=== PATIENT | male | born 1990 | race Caucasian/White ===

== ENCOUNTER 2021-10-03 10:13 | Emergency (ER) | payer OTHER, SELFPAY ==
--- NOTE | ~2021-10-03 | XR_ITS ---
XR ankle LT min 3V 10/03/2021 10:39 INDICATION: Left ankle pain after trauma PROCEDURE: 4 views left ankle COMPARISON: No prior studies for comparison. FINDINGS: Fracture, dislocation or subluxation is not identified. Ankle mortise intact. Talar dome wi thin normal limits. The soft tissues appear within normal limits. No foreign bodies are identified. IMPRESSION: 1: NO ACUTE BONE OR JOINT ABNORMALITY IDENTIFIED. Reviewed, dictated and finalized at location [facility]
--- NOTE | 2021-10-03 10:28 | ED.LOWEXIN ---
HPI - Extremity Injury (Lower) General Chief Complaint: Extremity Injury, Lower Stated Complaint: Lt ankle pain Time Seen by Provider: 10/03/21 10:28 Source: patient and RN notes reviewed History of Present Illness HPI Narrative: Patient is a 31-year-old male who presents the urgent care with complaints of left ankle pain and swelling. Patient also reports to bruising and an abrasion to the left lower arm. Patient states that he was playing basketball this morning and rolled the left ankle falling against the bleachers. Patient states that he is elevated the ankle and placed ice but states he is having increased pain with weightbearing and ambulation. Patient denies hitting his head or any other injuries from the fall. Patient states that he saw the medical office at [place] and they recommended that he get an x-ray. No other acute complaints. No acute distress noted. Patient aware of the plan of care. Some parts of this dictation were generated by voice recognition software and may contain typographical and/or grammatical inaccuracies. Related Data Home Medications Medication Instructions Recorded Confirmed No Home Medications 10/03/21 10/03/21 Allergies Allergy/AdvReac Type Severity Reaction Status Date / Time No Known Allergies Allergy Verified 10/03/21 10:28 Review of Systems Review of Systems: CONSTITUTIONAL: Denies fever, chills, or sweats. EYES: Denies visual changes, redness, or discharge. ENT: Denies rhinorrhea, congestion, sore throat, or otalgia. CARDIOVASCULAR: Denies chest pain, palpitations, or edema. RESPIRATORY: Denies cough or dyspnea. GASTROINTESTINAL: Denies abdominal pain, nausea, vomiting, or diarrhea. GENITOURINARY: Denies dysuria or hematuria. SKIN: Denies rash or itching. Reports of bruising to the left lower arm MUSCULOSKELETAL: Reports of left ankle pain and swelling NEUROLOGIC: Denies headache, numbness, or weakness. All other systems reviewed are negative, except as documented in HPI. PMFSH Comments At the time of my signature, I reviewed and agree with the nursing past medical, surgical, social, and family history. There is no relevant family history pertinent to the patient complaint. Exam Narrative: GENERAL: This is a well-nourished, well-developed patient, in no apparent distress. HEAD: normocephalic, atraumatic. EYES: PERRL. Sclera clear/white. Vision is grossly intact. EARS: External ears normal NOSE: External nose normal with no obvious nasal discharge, nares without redness, no rhinorrhea. THROAT: Mucous membranes moist NECK: Neck supple CARDIOVASCULAR: Regular rate and rhythm without murmurs, gallops, or rubs. RESPIRATORY: Clear to auscultation. Breath sounds equal bilaterally. No wheezes, rales, or rhonchi. SKIN: warm, intact with no suspicious lesions or rash, good texture and turgor. NEURO: awake, alert, and oriented to person, place and time. There were no obvious focal neurologic abnormalities. EXTREMITIES: Mild to moderate edema and ecchymosis noted to the lateral left malleolus with mild tenderness. Range of motion within normal limits with exacerbated pain on weightbearing and flexion to the lateral aspect. Positive strong left pedal pulse with capillary refill less than 2 seconds. Course Vital Signs Vital signs: Vital Signs Temperature 98.0 F 10/03/21 10:30 Pulse Rate 74 10/03/21 10:30 Respiratory Rate 16 10/03/21 10:30 Blood Pressure 124/83 10/03/21 10:30 Pulse Oximetry 99 10/03/21 10:30 Temperature 98.0 F 10/03/21 10:30 Pulse Rate 74 10/03/21 10:30 Respiratory Rate 16 10/03/21 10:30 Blood Pressure 124/83 10/03/21 10:30 Pulse Oximetry 99 10/03/21 10:30 Reviewed MDM - Extremity Injury (Lower) MDM Narrative Medical decision making narrative: Reviewed x-ray results with the patient. He is aware that x-ray was negative for fracture or deformity. Advised the patient to use an Kenn wrap and elevate with ice/Tyle
[2021-10-03 10:30] VITALS: BP 124/83; PULSE 74; RESP 16; TEMP 36.7; O2SAT 99
== END 2021-10-03 11:07 | disposition home or self-care (01) ==
PROVIDERS: Emergency Provider Nurse Practitioner Family
DX: S93.402A Sprain of unspecified ligament of left ankle, initial encounter (principal); S96.912A Strain of unspecified muscle and tendon at ankle and foot level, left foot, initial encounter; X50.9XXA Other and unspecified overexertion or strenuous movements or postures, initial encounter; Y93.67 Activity, basketball
CPT/HCPCS: 73610; 99203; G0463